=== PATIENT | female | born 1975 | race African-American/Black ===

== ENCOUNTER 2016-09-06 21:10 | Emergency (ER) | payer SELFPAY ==
[~2016-09-06] VITALS: Ht 167.6 cm; Wt 73.0 kg
[~2016-09-06 21:10] MED LIST: IOHEXOL-350 100 ML BOTTLE ONE; SODIUM CHLORIDE 0.9% 10ML VIAL ONE
[2016-09-06 22:44] LABS: BASOPHILS % 0.5 % (0.0-2.0); EOSINOPHILS % 0.4 % (0.0-5.0); HEMATOCRIT. 30.6 % (36.0-48.0); HEMOGLOBIN. 9.7 g/dL (12.0-16.0); LYMPHOCYTES % 47.8 % (20.0-50.0); MEAN CORPUSCULAR HEMOGLOBIN 25.4 pg (28.0-32.0); MEAN PLATELET VOLUME 7.9 fl (7.4-10.4); NEUTROPHILS % 44.3 % (40.0-76.0); PLATELET 216 x1000/uL (130-400); RED BLOOD CELL COUNT 3.82 mill/uL (4.2-5.4); RED CELL DISTRIBUTION WIDTH 16.3 % (11.6-14.6)
[2016-09-06] MEDS ORDERED: MORPHINE SULFATE 10 MG/ML CPJ IV ONE (22:45)
[2016-09-06] MEDS ORDERED: LIDOCAINE HCL/EPINEPHRINE 1%-EPI 1:100,000 20 ML VIAL INFIL ONE ×2 (22:45→23:45)
[2016-09-06 22:49] LABS: CHLORIDE 106 mEq/L (98-107)
[2016-09-06 22:54] LABS: CARBON DIOXIDE 28 mEq/L (21-32)
[2016-09-06] MEDS ORDERED: MORPHINE SULFATE 4 MG/ML CPJ (NOT FOR IM USE) IV ONE (23:00)
[2016-09-06 23:21] LABS: HCG SCREEN NEGATIVE
[2016-09-06 23:28] LABS: INR 1.1; PROTHROMBIN TIME 11.4 sec
[2016-09-07] MEDS ORDERED: LIDOCAINE HCL 1%/EPI 1:200,000 30 ML VIAL MC ONE ×2 (00:15)
[2016-09-07] MEDS ORDERED: CEFTRIAXONE 1 G PREMIX 50 ML IV ONE (00:45)
[2016-09-07 01:03] LABS: CLARITY URINE CLEAR (CLEAR); COLOR URINE YELLOW (YELLOW); GLUCOSE URINE NEGATIVE (NEGATIVE); KETONES URINE TRACE (NEGATIVE); LEUKOCYTE ESTERASE URINE NEGATIVE (NEGATIVE); NITRITE URINE NEGATIVE (NEGATIVE); OCCULT BLOOD URINE NEGATIVE (NEGATIVE); PROTEIN URINE 1+ (NEGATIVE); SPECIFIC GRAVITY URINE 1.039 (1.005-1.030)
[2016-09-07 01:28] LABS: *AMPHETAMINES SCREEN URINE NEGATIVE (NEGATIVE); *BARBITURATES SCREEN URINE NEGATIVE (NEGATIVE); *BENZODIAZEPINES SCREEN URINE NEGATIVE (NEGATIVE); *COCAINE SCREEN URINE NEGATIVE (NEGATIVE); CANNABINOID URINE SCREEN NEGATIVE (NEGATIVE); METHADONE URINE SCREEN NEGATIVE (NEGATIVE); PHENCYCLIDINE URINE SCREEN NEGATIVE (NEGATIVE)
[2016-09-07 01:33] LABS: OPIATES URINE SCREEN PRESUMTIVE POSITIVE (NEGATIVE)
[2016-09-07] MEDS ORDERED: HYDROCODONE/APAP 7.5/325MG 1 TAB TABLET PO ONE (02:15)
[2016-09-07 02:18] VITALS: BP 141/90
== END 2016-09-07 02:55 | disposition home or self-care (01) ==
LOC: ER 21:25
DX: S51.812A Laceration without foreign body of left forearm, initial encounter (principal); S21.111A Laceration without foreign body of right front wall of thorax without penetration into thoracic cavity, initial encounter; S41.111A Laceration without foreign body of right upper arm, initial encounter; X99.1XXA Assault by knife, initial encounter; Y93.89 Activity, other specified; Y92.89 Other specified places as the place of occurrence of the external cause; Y99.8 Other external cause status
CPT/HCPCS: 12004; 36415; 73206; 80048; 80305; 81001; 84703; 85025; 85610; 96365; 96375; 99285; A4216; A4217; J0696; J2270; J3490; Q9967; Z7610